=== PATIENT | female | born 1945 | race Caucasian/White ===

== ENCOUNTER 2019-10-13 09:57 | Outpatient (CLI) | payer MEDICARE ==
[2019-10-13 10:51] LABS: BASOPHILS # (AUTO) 0.1 X10'3 (0-0.2); BASOPHILS % (AUTO) 0.6 % (0-1); EOSINOPHILS # (AUTO) 0.2 X10'3 (0-0.9); EOSINOPHILS % (AUTO) 2.1 % (0-6); HEMATOCRIT 36.1 % (35.0-45.0); HEMOGLOBIN 11.7 g/dl (12.0-16.0); LYMPHOCYTES % (AUTO) 30.4 % (21-51); MEAN CORPUSCULAR HGB CONC 32.5 g/dL (33.0-36.5); MEAN PLATELET VOLUME 7.9 FL (7.4-10.4); MONOCYTES # (AUTO) 0.8 X10'3 (0-0.9); MONOCYTES % (AUTO) 7.6 % (2-12); NEUTROPHILS # (AUTO) 5.9 X10'3 (1.8-7.7); NEUTROPHILS % (AUTO) 59.3 % (42-75); PLATELET COUNT 297 X10'3 (140-440); RED BLOOD COUNT 4.51 X10'6 (4.20-5.60); WHITE BLOOD COUNT 9.9 X10'3 (4.5-11.0)
[2019-10-13 11:05] LABS: PARTIAL THROMBOPLASTIN TIME 28 SECONDS (22-32)
[2019-10-13 11:22] LABS: ALANINE AMINOTRANSFERASE 14 U/L (12-78); ALBUMIN/GLOBULIN RATIO 0.6 (1.1-1.5); ALKALINE PHOSPHATASE 81 IU/L (46-116); ASPARTATE AMINO TRANSFERASE 12 U/L (10-37); BILIRUBIN,TOTAL 0.3 MG/DL (0.1-1.0); BLOOD UREA NITROGEN 18 MG/DL (7-18); BUN/CREATININE RATIO 17.3 (6.6-38.0); CALCIUM 8.6 MG/DL (8.5-10.1); CREATININE 1.04 MG/DL (0.40-0.90); GLUCOSE 142 MG/DL (70-104); SODIUM 139 MMOL/L (135-145); TOTAL PROTEIN 7.7 G/DL (6.4-8.2); eGFR 52 ML/MIN
[2019-10-13 11:42] LABS: ANION GAP 10 (8-16); CHLORIDE 101 MMOL/L (99-107); TOTAL CARBON DIOXIDE 28.2 MMOL/L (24-32)
== END 2019-10-13 23:59 | disposition home or self-care (01) ==
LOC: LAB 09:57
PROVIDERS: ATTEND Otolaryngology
DX: D69.1 Qualitative platelet defects (principal)
CPT/HCPCS: 36415; 80053; 85025; 85576; 85610; 85730

== ENCOUNTER 2019-11-21 06:48 | Day surgery (SDC) | payer MEDICARE, BC ==
[2019-11-16 14:31] LABS: BASOPHILS # (AUTO) 0.1 X10'3 (0-0.2); BASOPHILS % (AUTO) 1.2 % (0-1); EOSINOPHILS # (AUTO) 0.3 X10'3 (0-0.9); EOSINOPHILS % (AUTO) 4.4 % (0-6); LYMPHOCYTES # (AUTO) 2.9 X10'3 (1.1-4.8); LYMPHOCYTES % (AUTO) 43.5 % (21-51); MEAN CORPUSCULAR HEMOGLOBIN 25.5 PG (27.0-31.0); MEAN CORPUSCULAR HGB CONC 32.3 g/dL (33.0-36.5); MEAN PLATELET VOLUME 7.7 FL (7.4-10.4); MONOCYTES # (AUTO) 0.6 X10'3 (0-0.9); MONOCYTES % (AUTO) 9.6 % (2-12); NEUTROPHILS # (AUTO) 2.8 X10'3 (1.8-7.7); NEUTROPHILS % (AUTO) 41.3 % (42-75); PRE OP HEMATOCRIT 37.1 % (35.0-45.0); PRE OP PLATELET COUNT 279 X10'3 (140-440); RED CELL DISTRIBUTION WIDTH 17.6 % (11.5-14.5)
[2019-11-16 14:52] LABS: PRE OP PROTIME 10.4 SECONDS (9.0-12.0)
[2019-11-16 14:55] LABS: ALBUMIN 3.2 G/DL (3.4-5.0); ALBUMIN/GLOBULIN RATIO 0.7 (1.1-1.5); ALKALINE PHOSPHATASE 86 IU/L (46-116); BLOOD UREA NITROGEN 23 MG/DL (7-18); BUN/CREATININE RATIO 24.2 (6.6-38.0); CALCIUM 8.3 MG/DL (8.5-10.1); CHLORIDE 104 MMOL/L (99-107); CREATININE 0.95 MG/DL (0.40-0.90); PRE OP ALT 17 U/L (30-65); PRE OP ANION GAP 8 (8-16); PRE OP AST 9 U/L (10-37); PRE OP BILIRUB, TOTAL 0.3 MG/DL (0.0-1.0); PRE OP POTASSIUM 3.8 MMOL/L (3.4-5.1); PRE OP SODIUM 140 MMOL/L (135-145); TOTAL CARBON DIOXIDE 28.5 MMOL/L (24-32); TOTAL PROTEIN 7.5 G/DL (6.4-8.2); eGFR 57 ML/MIN
[2019-11-16 14:56] LABS: PRE OP GLUCOSE 129 MG/DL (70-104)
[2019-11-21] VITALS (19 sets, daily range): BP systolic 131–159; BP diastolic 74–87
[~2019-11-21] VITALS: Ht 172.7 cm; Wt 96.2 kg
[~2019-11-21 06:48] MED LIST: ASPI81TA47 PO; ATEN50TA PO; AZEL30SP3 BOTHNARES; BUDE10.2 INH; CETI-90 PO; CHOL500061; DOCUMENT DATE & TIME OF BETA-BLOCKER PO ONE; DOXY25TA51 PO; FEXO180T94 PO; FISH1200 PO; FLUO10CA30 PO; FLUT16SP2 BOTHNARES; GLUC1TAB9 PO; LACT1TAB27 PO; LEVO100T PO; LIDOcaine 1% W/epiNEPHrine 1:100,000 20ml vial ONE; MAGN500C16 PO; MELA3TAB64 PO; MONT10TA21 PO; TRIA1CAP6 PO; TURM500C4; bupivacaine 0.25%/epinephrine 1:200,000 inj (contains preserv. MDV) ONE; famotidine 10mg tablet PO ONE; ringers solution, lacted 1,000 ML IV SCH
[2019-11-21] MEDS ORDERED: cocaine 4% topical solution 4ml bottle ONE ×2 (10:40→12:17)
[2019-11-21] MEDS ORDERED: triamcinolone acetonide 40mg/ml inj ONE (10:41)
[2019-11-21] MEDS ORDERED: methylPREDNISolone acetate 80mg/ml inj**IM only ONE (10:41)
[2019-11-21] MEDS ORDERED: LIDOcaine 1% W/epiNEPHrine 1:100,000 20ml vial ONE (10:41)
[2019-11-21] MEDS ORDERED: cefTAZidime 1gm inj ONE (10:43)
[2019-11-21] MEDS ORDERED: mupirocin 2% ointment 22GM ONE (10:43)
[2019-11-21] MEDS ORDERED: oxymetazoline 15 ML nasal spray NS ONE ×2 (10:44→12:17)
[2019-11-21] MEDS ORDERED: sevoflurane 250ml liquid IH ONE (10:58)
[2019-11-21] MEDS ORDERED: rocuronium 10mg/ml inj IV ONE (10:58)
[2019-11-21] MEDS ORDERED: fentaNYL/PF 50MCG/1 ML 2ML syringe ONE (11:01)
[2019-11-21] MEDS ORDERED: midazolam 2 mg/2 ml injection ONE (11:01)
[2019-11-21] MEDS ORDERED: LIDOcaine 2% (20mg/ml) 5ml vial ONE (11:02)
[2019-11-21] MEDS ORDERED: propofol inj 20 ML IV ONE (11:02)
[2019-11-21] MEDS ORDERED: dexamethasone sod phosphate 4mg/ml inj. ONE (11:16)
[2019-11-21] MEDS ORDERED: ondansetron/PF 4mg/2ml inj ONE (11:16)
[2019-11-21] MEDS ORDERED: ringers solution, lacted 1,000 ML IV SCH (12:56)
[2019-11-21] MEDS ORDERED: morphine 4 MG/ML inj SYRINge IV PRN ×2 (13:00)
[2019-11-21] MEDS ORDERED: meperidine/PF 25mg/ml syringe IV PRN ×2 (13:00)
[2019-11-21] MEDS ORDERED: ondansetron/PF 4mg/2ml inj IV PRN (13:00)
[2019-11-21] MEDS ORDERED: proCHLORperazine 10 MG/2 ml inj IV PRN (13:00)
--- NOTE | 2019-11-21 13:37 | NUR ---
Received from OR via [facility], accompanied by Anesthesiologist DR PEDRAZA and report given by Anesthesiologist. PT DROWSY, DENIES PAIN, BILAT NARES W/CATRACHITA, SMALL AMT OF BLOODY DRAINAGE BELOW NOSE. Addendum: 11/21/19 at 1400 by Elke Zaragoza RN Amended: Links added.
[2019-11-21] MEDS: meperidine/PF 25mg/ml syringe IV PRN ×2 (14:07→14:29)
[2019-11-21] MEDS ORDERED: acetaminophen 1,000mg/100ml IV 100 ML IV ONE (15:35)
--- NOTE | 2019-11-21 17:07 | NUR ---
D/C INSTRUCTIONS GIVEN AND GONE OVER W/PT AND PTS WHOM VERBALIZE UNDERSTANDING, PT D/CD HOME VIA W/C TO PRIVATE VEHICLE W/O INCIDENT. Addendum: 11/21/19 at 1721 by Elke Zaragoza RN Amended: Links added.
== END 2019-11-21 17:07 | disposition home or self-care (01) ==
LOC: PAS 06:48
PROVIDERS: ATTEND Otolaryngology
DX: J32.9 Chronic sinusitis, unspecified (principal); J33.8 Other polyp of sinus; E78.00 Pure hypercholesterolemia, unspecified; I10 Essential (primary) hypertension; E03.9 Hypothyroidism, unspecified; E66.9 Obesity, unspecified; Z68.32 Body mass index [BMI] 32.0-32.9, adult; Z90.49 Acquired absence of other specified parts of digestive tract; G47.30 Sleep apnea, unspecified; Z98.890 Other specified postprocedural states; Z72.89 Other problems related to lifestyle; Z79.899 Other long term (current) drug therapy; Z79.01 Long term (current) use of anticoagulants
CPT/HCPCS: 31253; 31259; 31267; 36415; 61782; 80053; 82948; 85025; 85576; 85610; 85730; 87070; 87075; 87102; 93005; A6402; C9250; J0131; J0713; J1040; J1100; J2001; J2175; J2250; J2405; J2704; J3010; J3301; J7040; J7120; A4618; A7000

== ENCOUNTER 2024-08-02 09:40 | Day surgery (SDC) | payer BC, MEDICARE ==
[~2024-08-02] VITALS: Ht 171.4 cm; Wt 85.0 kg
[2024-08-02] VITALS (11 sets, daily range): BP systolic 113–135; BP diastolic 46–64; PULSE 76–93; RESP 12–20; TEMP 98; O2SAT 91–98
[2024-08-02] MEDS: levoFLOXACIN-Levaquin 750MG/D5 150 ML IV ONE (05:30)
[2024-08-02] MEDS: tranexamic acid inj. 1,000 MG in normal saline IV soln 100ML IV ONE (05:30)
[~2024-08-02 09:40] MED LIST changes: -AZEL30SP3 BOTHNARES; +BETA1TAB19 PO; -BUDE10.2 INH; +CHOL500050 PO; -CHOL500061; -DOXY25TA51 PO; +FERR-116 PO; -FEXO180T94 PO; -FLUO10CA30 PO; -FLUT16SP2 BOTHNARES; -LIDOcaine 1% W/epiNEPHrine 1:100,000 20ml vial ONE; -MAGN500C16 PO; +MAGN500C4 PO; -MELA3TAB64 PO; +METF-436 PO; +METH1CAP18 PO; +MONT-47 PO; -MONT10TA21 PO; +POVI30SO INH; -TRIA1CAP6 PO; +TRIA1TAB3 PO; -bupivacaine 0.25%/epinephrine 1:200,000 inj (contains preserv. MDV) ONE; -famotidine 10mg tablet PO ONE; -ringers solution, lacted 1,000 ML IV SCH
[2024-08-02] MEDS: oxymetazoline 15 ML nasal spray NS ONE (10:35)
[2024-08-02] MEDS: ringers solution, lacted 1,000 ML IV SCH (10:35)
[2024-08-02] MEDS: famotidine 20mg tablet PO ONE (10:35)
[2024-08-02] MEDS ORDERED: cocaine 4% topical solution 4ml bottle ONE (11:08)
[2024-08-02] MEDS ORDERED: tranexamic acid 100mg/ml inj. ONE (11:09)
[2024-08-02] MEDS ORDERED: methylPREDNISolone acetate 80mg/ml inj**IM only ONE (11:09)
[2024-08-02] MEDS ORDERED: mupirocin 2% ointment 22GM ONE (11:09)
[2024-08-02] MEDS ORDERED: epiNEPHrine 1 mg/ml 30ml MDV ONE ×2 (11:09→14:54)
[2024-08-02] MEDS ORDERED: LIDOcaine 1% w/EPI 1:100,000 inj. MDV 50 ML VIAL ONE (11:09)
[2024-08-02] MEDS ORDERED: oxymetazoline 15 ML nasal spray NS ONE (11:10)
[2024-08-02] MEDS ORDERED: dexamethasone sod phosphate 4mg/ml inj. ONE ×2 (12:07→14:54)
[2024-08-02] MEDS ORDERED: ondansetron/PF 4mg/2ml inj ONE (12:07)
[2024-08-02] MEDS ORDERED: propofol inj 20 ML IV ONE (12:07)
[2024-08-02] MEDS ORDERED: rocuronium 10mg/ml inj IV ONE (12:07)
[2024-08-02] MEDS ORDERED: midazolam 1 mg/ML 2ml injection ONE (12:07)
[2024-08-02] MEDS ORDERED: sevoflurane 250ml liquid IH ONE (12:08)
[2024-08-02] MEDS ORDERED: acetaminophen 1,000mg/100ml IV 100 ML IV ONE (12:08)
[2024-08-02] MEDS ORDERED: Thrombin (Bovine) 5,000 unit vial TP ONE (12:10)
[2024-08-02] MEDS ORDERED: meperidine/PF 50mg/ml syringe ONE (12:29)
[2024-08-02] MEDS ORDERED: fentaNYL/PF 50MCG/1 ML 2ML syringe IV PRN ×2 (13:00)
[2024-08-02] MEDS ORDERED: ringers solution, lacted 1,000 ML IV SCH (13:00)
[2024-08-02] MEDS ORDERED: morphine 2 MG/ML inj. syringe IV PRN (13:00)
[2024-08-02] MEDS ORDERED: hydrALAZINE 20mg/ml inj. IV PRN (13:00)
[2024-08-02] MEDS ORDERED: enalaprilat dihydrate 2.5mg/2ml vial IV PRN (13:00)
[2024-08-02] MEDS ORDERED: ondansetron/PF 4mg/2ml inj IV PRN (13:00)
[2024-08-02] MEDS ORDERED: ciprofloxacin lact 400MG/200ML 200 ML IV STA (13:00)
[2024-08-02] MEDS ORDERED: hydrALAZINE 20mg/ml inj. ONE (14:58)
[2024-08-02] MEDS: salt irrigation nasal spray 45 ML SPRAY NS PRN (15:49)
[2024-08-02] MEDS: mupirocin 2% nasal ointment 1gm UD NS SCH (15:50)
[2024-08-02] MEDS: HYDROcodone/acetaminophen 5mg/325mg tablet PO ONE (16:21)
[2024-08-02] MEDS: morphine 4 MG/ML inj SYRINge IV PRN (16:23)
== END 2024-08-02 16:58 | disposition home or self-care (01) ==
LOC: PAS 09:40
PROVIDERS: ATTEND Otolaryngology
DX: J32.9 Chronic sinusitis, unspecified (principal); I10 Essential (primary) hypertension; E03.9 Hypothyroidism, unspecified; K21.9 Gastro-esophageal reflux disease without esophagitis; Z79.899 Other long term (current) drug therapy; Z90.49 Acquired absence of other specified parts of digestive tract; Z98.890 Other specified postprocedural states
CPT/HCPCS: 21026; 31030; 31259; 31276; 61782; 82948; 87070; 87075; 87077; 87186; 93005; A6402; J0131; J0171; J0360; J1100; J1956; J2175; J2250; J2270; J2405; J2704; J3490; J7030; J7050; J7120; Z7506; Z7508; Z7512; A4618; A6449; A7000; J1010